=== PATIENT | male | born 1970 | race Caucasian/White ===

== ENCOUNTER → 2022-02-28 08:29 | Outpatient (BNVA) | payer OTHER, SELFPAY | PROVIDERS: PCP Internal Medicine; Visit Provider Internal Medicine Cardiovascular Disease | DX: I49.3 Ventricular premature depolarization (principal); I10 Essential (primary) hypertension | CPT/HCPCS: 93005 ==

== ENCOUNTER → 2022-03-14 14:04 | Outpatient (REF) | payer OTHER, SELFPAY ==
--- NOTE | 2022-03-14 14:08 | HM_ITS ---
* Total monitoring time 2 days and 23 hours. * Underlying rhythm is sinus. Average rate 83/Min. Range 59 to 119/Min. * No atrial fibrillation or flutter or AV blocks or pauses. * Rare supraventricular and ventricular ectopy with minimal burden. * Rapid/fast heartbeat in patient diary associated with sinus tachycardia. Some episodes of heart pounding correlate with sinus rhythm. MTDD
--- NOTE | 2022-03-14 14:08 | CA_ITS ---
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 The calculated ejection fraction is 55% by biplane method. - No obvious valvular pathology seen on this study. Findings Left Ventricle Normal left ventricular cavity size. The left ventricular systolic function is normal. The calculated ejection fraction is 55% by biplane method. There is no evidence of regional wall motion abnormalities. Diastolic function is normal for age. There is mild septal and mild basal asymmetric hypertrophy. Right Ventricle Normal right ventricular cavity size and systolic function. Atria Both atria are normal in size. Aortic Valve There is a normal trileaflet aortic valve. There is no aortic valve stenosis. There is no aortic valve regurgitation. Mitral Valve The mitral valve appears normal. There is no mitral valve regurgitation. There is no mitral valve stenosis. Pulmonic Valve The pulmonic valve is likely normal. Tricuspid Valve Normal tricuspid valve structure. There is trace tricuspid valve regurgitation. The pulmonary artery systolic pressure is normal. Great Vessels The asc aorta is normal in size. Venous The inferior vena cava was not well visualized. The inferior vena cava is normal in size. Pericardium/Pleural There is no evidence of pericardial effusion. Prior Study Comparison No prior study available for comparison. Recommendations, Care & Conclusions No obvious valvular pathology seen on this study. Measurements 2D Linear Measurements IVSd: 1.10 0.6-0.9/0.6-1.0 cm LVIDd: 4.52 3.9-5.3/4.2-5.9 cm LVIDd Index: 2.08 2.4-3.2/2.2-3.1 cm/m2 LVIDs: 3.34 2.0-3.6 cm LVPWd: 0.95 0.7-1.1 cm LA Diam: 3.60 2.7-3.8/3.0-4.0 cm LAIDs Index: 1.66 1.5-2.3 cm/m2 LV Mass: 198.90 67-162/88-224 g LV Mass Index: 91.66 43-95/49-115 g/m2 LVOT Diam: 2.30 3.0+(-)1.3 cm 2D Systolic Function EF 4C: 55.90 >55% EF 2C: 58.70 >55% EF BiP: 55.40 >55% Mitral Valve MV Pk E: 0.63 MV PK A: 0.73 MV Decel Time: 181.00 E/A: 0.90 E'Lateral: 14.00 E'Medial: 7.62 E/E' Med: 8.30 E/E' Lat: 4.50 PHT: 53.00 MVA PHT: 4.15 Decel Trigg: 3.51 Aortic Valve AoV Pk Deven: 1.25 AoV Mn Deven: 0.88 AoV VTI: 0.20 AoV Pk Grad: 6.00 Aov Mn Grad: 3.00 GEOVANY Cont.VTI: 2.88 LVOT LVOT Pk Deven: 0.88 LVOT Mn Deven: 0.55 LVOT VTI: 0.14 LVOT Pk Grad: 3.00 LVOT Mn Grad: 1.00 LVOT Diam: 2.30 LVOT Area: 4.15 Diastolic Function MV Pk E: 0.63 MV Pk A: 0.73 E/A: 0.90 E'Medial: 7.62 E/E' Med: 8.30 E' Laterial: 14.00 E/E' Lat: 4.50 Right Ventricle TAPSE (mm): 19.40 TVS' Deven: 10.30 Tricuspid Valve TR Pk Deven: 1.89 TR Pk Grad: 14.00 RA Press: 3.00 RVSP: 17.00 Great Vessels Aorta Sinus of Valsalva: 3.57 2.0-3.[address] Ridge: 2.64 1.7-3.4 cm Ao Asc: 3.00 2.1-3.4 cm Updated in Other Vendor System with Status of Final Odilon Ramirez MD electronically signed on 03/15/2022 12:44:56 PM with status of Final
== END ==
LOC: HO.CARD 14:04
PROVIDERS: Visit Provider Internal Medicine Cardiovascular Disease
DX: I49.3 Ventricular premature depolarization (principal)
CPT/HCPCS: 93242; 93306

== ENCOUNTER 2023-04-14 08:17 | Outpatient (AMB) | payer OTHER, SELFPAY ==
[2023-04-14 08:20] VITALS: BP 130/82; PULSE 80; BMI 33.5
--- NOTE | 2023-04-14 08:20 | MHC.OFFVIS ---
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 He has been doing well. Denies any symptoms of palpitations. Recently spironolactone was reduced as blood pressure was controlled to 25 mg daily. Plan by Nephrology because of recurrent urinary stone to switch is hydrochlorothiazide to chlorthalidone and probably stop spironolactone therapy. He was recently added with glipizide for his diabetes control. He does not exercise as much as he would like to. Denies any exertional chest pain or shortness of breath with routine activity. Denies any lightheadedness, syncope. No heart failure symptoms. [facility] Medical History Obesity Hyperlipidemia Diabetes PVCs (premature ventricular contractions) HTN (hypertension) Review of Systems Const Denies chills, Denies fatigue, Denies fever(s), Denies frequent falls, Denies weakness, Denies weight gain and Denies weight loss ENT Denies dizziness Card Denies chest pain, Denies leg edema, Denies lightheadedness, Denies palpitations, Denies dyspnea, Denies dyspnea on exertion, Denies orthopnea and Denies other (loss of consciousness) Resp Denies cough, Denies dyspnea and Denies dyspnea on exertion GI Denies hematochezia and Denies change in stool character Musc Denies abnormal gait, Denies muscle weakness, Denies numbness, Denies radiating pain into limb and Denies tingling Neuro Denies abnormal gait, Denies dizziness, Denies frequent falls, Denies numbness, Denies tingling and Denies weakness Endo Denies fatigue and Denies palpitations Physical Exam Vital Signs: Last Vital Signs Pulse 80 04/14/23 08:20 BP 130/82 04/14/23 08:20 BMI result Body Mass Index 33.5 Const General: cooperative, comfortable, no acute distress, alert, awake and well groomed Nutritional Appearance: well nourished and obese Orientation/consciousness: patient oriented x3 Limitations: no limitations Neck Neck: Yes trachea midline, Yes supple and Yes no JVD Resp Effort & Inspection: normal respiratory effort Auscultation: clear to auscultation bilaterally Cardio Jugular venous distension: no JVD Palpation: normal PMI Rate: regular rate Rhythm: regular rhythm Heart sounds: S1 normal heart sound present, S2 normal heart sound present, no click, no gallops, no murmurs and no rubs GI Inspection: Yes obesity Auscultation: normal bowel sounds Skin General skin exam: no rashes or lesions noted Neuro General: patient oriented x3 and no focal motor deficits Extrem General: Yes no clubbing, cyanosis or edema Office Procedures EKG Details: EKG shows normal sinus rhythm with left axis deviation with pseudo inferior infarct pattern most likely related to body habitus, unchanged from before [id number], Complete Assessment & Plan Assessment & Plan (1) HTN (hypertension): Code(s): I10 - Essential (primary) hypertension Plan: Longstanding hypertension requiring multiple medications. Has done very well with spironolactone therapy. Last potassium was 3.5 however if it is felt that is spironolactone needs to be held for alternative therapy I am okay with that. Will discuss with his Nephrology group. Continue lisinopril. Plan to switch him to chlorthalidone therapy. Advised to monitor blood pressure at home maintain a log. Goal blood pressure less than 130/84. Continue aggressive vascular risk factor modification starting with more aggressive lifestyle change with regular physical activity and weight loss program. Aggressive management diabetes goal hemoglobin A1c less than 7%. LDL is currently well optimized continue the same. (2) PVCs (premature ventricular contractions): Code(s): I49.3 - Ventricular premature depolarization Plan: Prior history of highly symptomatic PVCs which have remained suppressed. He has not had any significant symptoms. No change in therapy. No indication for beta-blockers. Avoidance of stimulants was discussed. Stress mitigation strategies were discussed. Will follow up in the clinic in 1 year's time, sooner p.r.n.. Thank you for allowing me to partake in his care Medications: Changed From spironolactone 50 mg PO DAILY 90 tabs 3RF To spironolactone 25 mg PO DAILY Coding Level of Care Code Est Pt Level 4 (81344) Diagnoses HTN (hypertension) I10 PVCs (premature ventricular contractions) I49.3 CPT Codes EKG - CPT: 61579-[id number], Complete ([id number])
== END 2023-04-14 08:46 | disposition home or self-care (01) ==
PROVIDERS: PCP Internal Medicine; Referring Provider Internal Medicine; Visit Provider Internal Medicine Cardiovascular Disease
DX: I10 Essential (primary) hypertension (principal); I49.3 Ventricular premature depolarization
CPT/HCPCS: 93010; 99214

== ENCOUNTER → 2023-04-14 08:17 | Outpatient (BNVA) | payer OTHER, SELFPAY | PROVIDERS: PCP Internal Medicine; Referring Provider Internal Medicine; Visit Provider Internal Medicine Cardiovascular Disease | DX: I49.3 Ventricular premature depolarization (principal); I10 Essential (primary) hypertension | CPT/HCPCS: 93005 ==

== ENCOUNTER 2024-04-14 08:19 | Outpatient (AMB) | payer OTHER, SELFPAY ==
[2024-04-14 08:25] VITALS: BP 140/88; PULSE 91; BMI 34.2
--- NOTE | 2024-04-14 08:25 | MHC.OFFVIS ---
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 He has been doing well. He said he has recently has lot of stress personally due to his parent's health and his blood pressures been elevated. His medications or change, lisinopril was increased about a month ago. Despite that the blood pressure remains elevated. His hydrochlorothiazide was switch to chlorthalidone for renal stones. He said that he has been doing well. He is currently not on spironolactone therapy. Currently taking metformin therapy. Overall doing well with no exertional symptoms although he does not go for exercise on a regular basis. Denies any chest pain, shortness of breath. No symptoms of palpitations. Denies any lightheadedness, syncope. No orthopnea, PND, leg edema. [facility] Medical History Obesity Hyperlipidemia Diabetes PVCs (premature ventricular contractions) HTN (hypertension) Review of Systems Const Denies chills, Denies fatigue, Denies fever(s), Denies frequent falls, Denies weakness, Denies weight gain and Denies weight loss ENT Denies dizziness Card Denies chest pain, Denies leg edema, Denies lightheadedness, Denies palpitations, Denies dyspnea, Denies dyspnea on exertion, Denies orthopnea and Denies other (loss of consciousness) Resp Denies cough, Denies dyspnea and Denies dyspnea on exertion GI Denies hematochezia and Denies change in stool character Musc Denies abnormal gait, Denies muscle weakness, Denies numbness, Denies radiating pain into limb and Denies tingling Neuro Denies abnormal gait, Denies dizziness, Denies frequent falls, Denies numbness, Denies tingling and Denies weakness Endo Denies fatigue and Denies palpitations Physical Exam Vital Signs: Last Vital Signs Pulse 91 04/14/24 08:25 BP 140/88 H 04/14/24 08:25 BMI result Body Mass Index 34.2 Const General: cooperative, comfortable, no acute distress, alert, awake and well groomed Nutritional Appearance: well nourished and obese Orientation/consciousness: patient oriented x3 Limitations: no limitations Neck Neck: Yes trachea midline, Yes supple and Yes no JVD Resp Effort & Inspection: normal respiratory effort Auscultation: clear to auscultation bilaterally Cardio Jugular venous distension: no JVD Palpation: normal PMI Rate: regular rate Rhythm: regular rhythm Heart sounds: S1 normal heart sound present, S2 normal heart sound present, no click, no gallops, no murmurs and no rubs GI Inspection: Yes obesity Auscultation: normal bowel sounds Skin General skin exam: no rashes or lesions noted Neuro General: patient oriented x3 and no focal motor deficits Extrem General: Yes no clubbing, cyanosis or edema Office Procedures EKG Details: EKG shows normal sinus rhythm with left axis deviation with inferior Q-waves [id number], Complete Assessment & Plan Assessment & Plan (1) HTN (hypertension): Code(s): I10 - Essential (primary) hypertension Category: Medical Plan: Patient hypertension which is uncontrolled probably related to recent personal situation increased stress. Although blood pressure remains elevated. Advised him to watch salt intake in his diet. Advised to increase fluid intake. I have taken the liberty to increase his lisinopril to 40 mg daily and chlorthalidone to 25 mg daily. Advised to monitor blood pressure at home maintain a log and provided to me in a month's time. Goal blood pressure less than 130/84. This was discussed with him. Importance of this was discussed. Once his stressful situation has improved her blood pressure is better controlled we can scale back on his medication this was discussed with him. Given his multiple risk factors would suggest a coronary calcium score to assess for coronary atherosclerosis and further treatment guidance. Continue aggressive sugar control with goal hemoglobin A1c less than 6%. (2) PVCs (premature ventricular contractions): Code(s): I49.3 - Ventricular premature depolarization Category: Medical Plan: Frequent PVCs in the past although currently not having any significant symptoms. EKG does not show any significant abnormalities at this point time. Will continue monitor clinically. Advised to call me with any new symptoms. Avoidance of stimulants and stress mitigation strategies were discussed. No pharmacotherapy is recommended. Will follow up in the clinic in 1 year's time, sooner p.r.n.. Thank you for allowing me to partake in his care Orders: Orders CT Coronary Calcium Score 4 Weeks I10 - Essential (primary) hypertension Medications: New chlorthalidone 25 mg PO DAILY 90 tabs 3RF lisinopril 40 mg PO DAILY 90 tabs 3RF Coding Level of Care Code Est Pt Level 4 (36069) Diagnoses HTN (hypertension) I10 PVCs (premature ventricular contractions) I49.3 CPT Codes EKG - CPT: 17821-[id number], Complete ([id number])
== END 2024-04-14 08:51 | disposition home or self-care (01) ==
PROVIDERS: PCP Internal Medicine; Visit Provider Internal Medicine Cardiovascular Disease
DX: I10 Essential (primary) hypertension (principal); I49.3 Ventricular premature depolarization
CPT/HCPCS: 93010; 99214

== ENCOUNTER → 2024-04-14 08:19 | Outpatient (BNVA) | payer OTHER, SELFPAY | PROVIDERS: PCP Internal Medicine; Visit Provider Internal Medicine Cardiovascular Disease | DX: I10 Essential (primary) hypertension (principal); I49.3 Ventricular premature depolarization; Z79.899 Other long term (current) drug therapy | CPT/HCPCS: 93005 ==

== ENCOUNTER 2025-04-18 08:12 | Outpatient (AMB) | payer OTHER, SELFPAY ==
[2025-04-18 08:19] VITALS: BP 130/70; PULSE 79; BMI 33.7
--- NOTE | 2025-04-18 08:19 | MHC.OFFVIS ---
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 He has been doing well from cardiac perspective. Very rarely he does have skipped heartbeats with PVCs. No exertional symptoms of chest pain or shortness of breath. Blood pressure is generally well controlled. He is currently on low-dose aspirin therapy. Denies any orthopnea, PND, leg edema. No lightheadedness, syncope. He said he tries to walk on a daily basis. [facility] Medical History Obesity Hyperlipidemia Diabetes PVCs (premature ventricular contractions) HTN (hypertension) Review of Systems Const Denies daytime sleepiness, Denies difficulty sleeping, Denies snoring, Denies stops breathing during sleep and Denies weakness Card Denies chest pain, Denies rapid heart rate, Denies irregular heart rhythm, Denies claudication, Denies leg edema, Denies lightheadedness, Denies palpitations, Denies dyspnea, Denies dyspnea on exertion, Denies orthopnea, Denies paroxysmal nocturnal dyspnea and Denies slow heart rate Resp Denies cough, Denies dyspnea, Denies dyspnea on exertion and Denies snoring GI Reports no additional complaints, Denies hematochezia, Denies change in stool character and Denies dyspepsia Musc Denies abnormal gait, Denies muscle weakness and Denies numbness Neuro Denies abnormal gait, Denies numbness and Denies weakness Endo Denies palpitations Physical Exam Vital Signs: Last Vital Signs Pulse 79 04/18/25 08:19 BP 130/70 04/18/25 08:19 BMI result Body Mass Index 33.7 Const General: cooperative, comfortable, no acute distress, alert, awake and well groomed Nutritional Appearance: well nourished and obese Orientation/consciousness: patient oriented x3 Limitations: no limitations Neck Neck: Yes trachea midline, Yes supple and Yes no JVD Resp Effort & Inspection: normal respiratory effort Auscultation: clear to auscultation bilaterally Cardio Jugular venous distension: no JVD Palpation: normal PMI Rate: regular rate Rhythm: regular rhythm Heart sounds: S1 normal heart sound present, S2 normal heart sound present, no click, no gallops, no murmurs and no rubs GI Inspection: Yes obesity Auscultation: normal bowel sounds Skin General skin exam: no rashes or lesions noted Neuro General: patient oriented x3 and no focal motor deficits Extrem General: Yes no clubbing, cyanosis or edema Office Procedures EKG Details: EKG shows normal sinus rhythm with left axis deviation with Q-waves in lead 3 and AVF, most likely pseudo infarct pattern related to abdominal obesity [id number], Complete Assessment & Plan Assessment & Plan (1) CAD (coronary artery disease): Code(s): I25.10 - Atherosclerotic heart disease of campo coronary artery without angina pectoris Category: Medical Plan: Coronary artery disease based on coronary calcium score with total score of 111. Agree with low-dose aspirin therapy. Continue aggressive risk factor modification. Currently on statin therapy. Target goal LDL less than 60 mg/dL. Will obtain lipid panel through your office. Continue aggressive blood pressure control, see below. Diabetes management as per your office. Goal hemoglobin A1c less than 7%. (2) PVCs (premature ventricular contractions): Code(s): I49.3 - Ventricular premature depolarization Category: Medical Plan: PVCs more or less a controlled on current therapy despite increased stress at work. Advised to continue monitor. Avoidance of stimulants was discussed. Stress mitigation strategies were discussed. (3) HTN (hypertension): Code(s): I10 - Essential (primary) hypertension Category: Medical Plan: Hypertension which is currently well optimized advised to monitor blood pressure at home maintain a log. Goal blood pressure less than 130/84. Low-salt diet was discussed. Understands agrees. Continue participate in weight loss program. Continue to participate in regular aerobic training. Will follow up in the clinic in 1 year's time, sooner p.r.n.. Thank you for allowing me to partake in his care Coding Level of Care Code Est Pt Level 4 (21249) Complex EM visit Add On G2211 Diagnoses CAD (coronary artery disease) I25.10 PVCs (premature ventricular contractions) I49.3 HTN (hypertension) I10 CPT Codes EKG - CPT: 76678-[id number], Complete ([id number])
--- OUTSIDE RECORDS SUMMARY | 2025-04-18 09:27 | XMS_ITS | Clinical Summary ---
Author Organization [facility] Facility Address [address] [address] Care Team Providers Care Environmental Health Inspector Name Role Phone Kiko Ricks MD Primary Care Provider Allergies Active Allergy Reactions Criticality Noted Date Comments Codeine Other (see comments) 12/18/2020 Medications omega-3 (FISH OIL) 1000 MG capsule Take 2 capsules by mouth 1 (one) time each day Active Multiple Vitamins-Minera ls (MULTIVITAMIN ADULTS 50+ PO) Take 1 tablet by mouth 1 (one) time each day Active Glucosamine HCl-MSM (Glucosamine-MS M) 375-250 MG tablet Take 1 tablet by mouth 1 (one) time each day Active lisinopril (PRINIVIL,ZESTR IL) 10 MG tablet Take 20 mg by mouth 1 (one) time each day Active atorvastatin (LIPITOR) 20 MG tablet Take 20 mg by mouth 1 (one) time each day 05/15/2022 Active metFORMIN XR (GLUCOPHAGE-XR) 500 MG 24 hr tablet Take 1,000 mg by mouth in the morning and 1,000 mg in the evening. 05/09/2022 Active chlorthalidone 25 MG tablet Take 12.5 mg by mouth 1 (one) time each day 04/24/2023 Active Potassium Citrate ER 15 MEQ (1620 MG) tablet controlled-rele ase Take 1 tablet by mouth in the morning and 1 tablet in the evening. 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 Encounters Date Type Department Care Team Description 02/01/2025 8:00 AM EDT Office Visit [facility] [address] [id number] Jacques Mason MD Medullary nephrocalcinosis (Primary Dx); Hypertension; Hypercalciuria; Acquired renal cystic disease; Overweight; Renal stone from Last 3 Months Family History Medical History Relation Comments Hypertension Father Heart disease Mother [place] Hypertension Mother Relation Status Comments Father Alive Mother Alive Social History Tobacco Use Types Packs/Day Years Used Date Smoking Tobacco: Never Smokeless Tobacco: Never Alcohol Use Standard Drinks/Week Comments Yes 0 (1 standard drink = 0.6 oz pure alcohol) Alcoholic Drinks/day: Occasional social drink Sex and Gender Information Value Date Recorded Sex Assigned at Not on file Legal Sex Male 4:49 PM EST Gender Identity Not on file Sexual Orientation Not on file Last Filed Vital Signs Vital Sign Reading Time Taken Comments Blood Pressure 140/80 02/01/2025 8:03 AM EDT Pulse 80 02/01/2025 8:03 AM EDT Temperature - - Respiratory Rate - - Oxygen Saturation 97% 02/01/2025 8:03 AM EDT Inhaled Oxygen Concentration - - Weight 102 kg (224 lb) 02/01/2025 8:03 AM EDT Height 177.8 cm (5' 10 ) 02/03/2024 8:22 AM EDT Body Mass Index 32.14 02/03/2024 8:22 AM EDT Plan of Treatment Upcoming Encounters Date Type Department Care Team (Late st Contact Info) Description 02/01/2026 8:00 AM EDT Office Visit [facility] [address] [id number] Jacques Mason MD [address] [id number] Health Maintenance Due Date Last Done Comments Hepatitis B Vaccine (1 of 3 - 19+ 3-dose series) 02/09/1987 Pneumococcal Vaccine: 50+ Ye ars (1 of 2 - PCV) 02/09/1987 Colorectal Cancer Screening: Annual FOBT 02/09/2017 Colorectal Cancer Screening: Colonoscopy 02/09/2017 Colorectal Cancer Screening: Sigmoidoscopy 02/09/2017 Diabetes: Ophthalmology Exam 12/23/2024 Diabetes: Pedal Pulse Checked 12/23/2024 Diabetes: Sensory Foot Exam 12/23/2024 Diabetes: Visual Foot Exam 12/23/2024 Influenza Vaccine (#1) 2025 , 04/17/2021, 05/22/2020, Additional history exists Diabetes: Hemoglobin A1C 04/08/2025 01/06/2025, 07/03 Insurance [employer] Care Teams Environmental Health Inspector Relationship Specialty Start Date End Date Kiko Ricks MD [address] [place] [id number] PCP - [facility] 06/19/22
--- OUTSIDE RECORDS SUMMARY | 2025-04-18 09:27 | XMS_ITS | Clinical Summary ---
Author Organization [facility] Address [address] [address] Phone Care Team Providers Care Fur Matcher Name Role Phone Shanna Patton MD Primary Care Provid er Social History Tobacco Use Types Packs/Day Years Used Date Smoking Tobacco: Never Assessed Education Answer Date Recorded Are you interested in more education? Not on aubrey e 11/28/2022 Are you concerned about learning? Not on file 11/28/2022 No 11/28/2022 No 11/28/2022 Digital Access Answer Date Recorded No 12/27/2022 No 12/27/2022 No 12/27/2022 Reliable internet access at home? Not on file 12/27/2022 Device with a working camera? Not on file Sex and Gender Information Value Date Recorded Sex Assigned at Not on file Legal Sex Male 2:35 PM EDT Gender Identity Not on file Sexual Orientation Not on file Plan of Treatment Health Maintenance Due Date Last Done Comments LIPID PANEL 1968 DEPRESSION SCREENING 1980 SMOKING Hx and SMOKELESS TOBACCO SCREENING 02/09/1981 HEPATITIS C SCREENING 02/09/1986 HIV ONE-TIME SCREENING (18-65 YEARS) 02/09/1986 COLOGUARD 02/09/2013 COLONOSCOPY 02/09/2013 COLORECTAL CANCER SCREENING 02/09/2013 FIT TEST 02/09/2013 FOBT 02/09/2013 SIGMOIDOSCOPY 02/09/2013 VIRTUAL COLONOSCOPY 02/09/2013 PNEUMOCOCCAL VACCINES (50+ years) (1 of 1 - PCV) 02/09/2018 ZOSTER VACCINES (1 of 2) 02/09/2018 INFLUENZA VACCINE (#1) 2025 0, 05/19/2019, 04/28/2018, Additional history exists COVID-19 VACCINE ( season) 2025 09/13/2020, 08/16/2020 Adult Td,Tdap Booster 09/08/2029 09/08/2019, 009 HEPATITIS A VACCINES Aged Out No long er eligible based on patient's age to complete this topic HIB VACCINES Aged Out No longer eligi ble based on patient's age to complete this topic MENINGOCOCCAL VACCINES (ACWY) Aged Out No longer eligible based on patient's age to complete this topic MENINGOCOCCAL VACCINES (B) Aged Out N o longer eligible based on patient's age to complete this topic Medical Devices Not on file Insurance [employer] [facility] CHOICE [address] [place], [place] [address] [facility] [place] [address] [place] [address] [place] [address] [facility] [address] [address] [facility] [address] [facility] CHOICE [facility] Care Teams Fur Matcher Relationship Specialty Start Date End Date [facility] [address] [address] PCP - General Internal Medicine 11/23/19 Additional Source Comments The information contained in this document represents components of the legal health record. It is not the complete legal health record.[facility]
--- OUTSIDE RECORDS SUMMARY | 2025-04-18 09:27 | XMS_ITS | Clinical Summary ---
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 04/25/20 24 Active glucosamine-c hondroit-vit C-Mn 500-400 mg capsule Take by mouth. Acti ve Autolet lancing device [employer] (One Touch Delica Lancing Dev) [facility] [place] [place] Use as directed to test blood sugar 11/20/19 22 Active lisinopril (PRINIVIL,ZES TRIL) 40 mg tablet Take 1 Tablet by mouth daily. 04/25/20 24 Active MULTIVITAMIN ORAL Take by mouth daily. Active magnesium oxide 400 mg magnesium capsule TAKE 1 CAPSULE BY MOUTH EVERY DAY 10/21/19 24 Active omega-3 (FISH OIL) 360-1,200 mg capsule Take by mouth daily. Active ONETOUCH DELICA LANCETS MISC ONETOUCH DELICA LANCETS FINE MISC Use to test blood sugar once daily 11/20/19 22 Active OneTouch Ultra Test test strip Use as instructedUSE TO CHECK BLOOD SUGAR ONCE DAILY 100 strip 1 07/14/20 24 Active aspirin 81 mg EC tablet Take 1 tablet (81 mg total) by mouth 1 (one) time each day. Active glipiZIDE (Glucotrol XL) 5 mg 24 hr tablet Take 1 tablet (5 mg total) by mouth 1 (one) time each day. Do not crush, chew, or split. 90 each 1 01/07/20 25 Active potassium citrate (UROCIT-K) 15 mEq SR tablet TAKE 1 TABLET (15 MEQ TOTAL) BY MOUTH EVERY 8 (EIGHT) HOURS. 270 tablet 1 01/31/20 25 Active atorvastatin (LIPITOR) 20 mg tablet TAKE 1 TABLET BY MOUTH EVERY DAY 90 tablet 1 01/31/20 25 Active metFORMIN XR (GLUCOPHAGE-X R) 500 mg 24 hr tablet TAKE 2 TABLETS (1,000 MG TOTAL) BY MOUTH 2 (TWO) TIMES A DAY. DO NOT CRUSH, CHEW, OR SPLIT. 360 tablet 1 03/28/20 25 Active metFORMIN XR (GLUCOPHAGE-X R) 500 mg 24 hr tablet Take 2 tablets (1,000 mg total) by mouth 2 (two) times a day. Do not crush, chew, or split. 360 tablet 1 10/06/19 25 025 Discontinued Active Problems Problem Noted Date Diagnosed Date Hypomagnesemia 01/05/2025 Calculus of right ureter 08/28/2023 Hypokalemia 08/28/2023 Type 2 diabetes mellitus wit h microalbuminuria, without long-term current use of insulin ([facility] V24, [facility] V28) 09/05/2022 Uncontrolled type 2 diabetes mellitus with hyperglycemia ([facility] V24, [facility] V28) 11/19/2021 Mixed hyperlipidemia 05/10/2021 Effusion of left foot joint 02/09/2020 Pain of left heel 02/09/2020 Retinal freckle 09/28/2014 White coat syndrome with hypertension 03/02/2013 Obesity (BMI 30.0-34.9) 01/27/2013 Primary hypertension 06/03/2011 Kidney stone 06/03/2011 Overview (06/17/2024): 80 % calcium oxalate dihydrate 10 % calcium oxalate monohydrate 10 % calcium phosphate Immunizations Name Administration Dates Next Due Influenza Quadravalent, MDCK , 0.5ml, preservative free (Flucelvax) 6mo and older 04/24/2023,05/19/2019 Influenza trivalent, 0.5mL, preservative free (Fluarix; FluLaval; Fluzone) ages 6mo and older (Afluria) 3 years and older 04/17/2021,05/22/2020,04/09/2016,2013,05/31/2013,06/23/2012,06/03/2011 Moderna SARS-CoV-2 COVID-19, mRNA, LNP-S, preservative free 11/13/2021,09/13/2020,08/16/2020 Td Tetanus diptheria (Tdvax) 7yo and older 09/08/2019 Tdap Tetanus diptheria acell ular pertussis (Boostrix; Adacel) 7yo and older 04/06/2009 Surgical History Surgery Date Site/Laterality Comments ANKLE SURGERY PROCEDURE: HISTORICAL ANKLE SURGERY; COMMENT: x 3 COLONOSCOPY PROCEDURE: HISTORICAL COLONOSCOPY LITHOTRIPSY PROCEDURE: HISTORICAL LITHOTRIPSY Medical History Medical History Date Comments HTN (hypertension) DX:HTN (hyper tension) Kidney stone 2010 DX:Kidney stone; COMMENT: passed spontaneously Summer 2010 Obesity (BMI 30.0-34.9) 01/27/2013 DX:Obesi ty (BMI 30.0-34.9) Retinal freckle 09/28/2014 DX:Retinal freck le DM2 (diabetes mellitus, type 2) ([facility] V24, [facility] V28) DX:DM2 (diabetes mellitus, type 2) ([facility]) Family History Medical History Relation Name Comments Diabetes Brother Other: salivary gland ca Father Coronary artery disease Mother Relation Name Status Comments Brother Alive diabetes Daughter Alive healthy Father Alive htn Mother Alive heart disease h eart attack Sister Alive dementia Son 1 Alive healthy Son 2 Alive healthy Social History Tobacco Use Types Packs/Day Years Used Date Smoking Tobacco: Never Smokeless Tobacco: Never Tobacco Cessation:Counseling Given: Not Answered Alcohol Use Standard Drinks/Week Comments Yes 0 (1 standard drink = 0.6 oz pur e alcohol) Housing Instability Answer Date Recorde d Are you worried that in the next 2 months you may not have stable housing? No 07/22/2024 Food Access & Nutrition Answer Date Rec orded Do you have access to a vari ety of food including fruits and vegetables? Yes 07/22/2024 Access to Healthcare Answer Date Record ed Within the last 3 months, ho w many times did you visit the emergency department for your medical care? 0 07/22/2024 Health Literacy Answer Date Recorded How often do you need to hav e someone help you when you read instructions, pamphlets, or other written material from your doctor or pharmacy? Never 07/22/2024 Caregiver: How often do you need to have someone help you when you read instructions, pamphlets, or other written material from your doctor or pharmacy? Not on file 07/22/2024 Financial Risk Answer Date Recorded How hard is it for you to pa y for the very basics like food, housing, medical care, and air conditioning / heating? Not very hard 07/22/2024 Transportation Answer Date Recorded Has the lack of transportati on kept you from meetings, work, or from getting things needed for daily living? No Has the lack of transportati on kept you from medical appointments or from getting medications? No 07/22/2024 Social Isolation Answer Date Recorded How often do you feel lonely or isolated from th ose around you? Never 07/22/2024 Food Risk Answer Date Recorded Within the past 12 months we worried whether our food would run out before we got money to buy more. Never true 07/22/2024 Within the past 12 months th e food we bought just didn't last and we didn't have money to get more. Never true 07/22/2024 Dependent Care Answer Date Recorded Do you need help finding or paying for care for your loved ones. For example, children's attendant or elderly care for an older adult? No 07/22/2024 Education Answer Date Recorded Do you think completing more education or training, like finishing a GED, going to college, or learning a trade, would be helpful for you? N/A 07/22/2024 Employment and Income Answer Date Recor ded During the last four weeks, have you been actively looking for work? No 07/22/2024 Living Situation Answer Date Recorded What is your living situation? 1 09/22/2023 Sex and Gender Information Value Date Recorded Sex Assigned at Not on file Legal Sex Male 9:57 AM EST Gender Identity Not on file Sexual Orientation Not on file Obstetrics History Last Filed Vital Signs Vital Sign Reading Time Taken Comments Blood Pressure 128/80 01/06/2025 1:18 PM EDT Pulse 74 01/06/2025 1:18 PM EDT Temperature 36.2 C (97.1 F) 01/06/2025 1:18 PM EDT Respiratory Rate 20 01/06/2025 1:18 PM EDT Oxygen Saturation - - Inhaled Oxygen Concentration - - Weight 105 kg (232 lb) 01/06/2025 1:18 PM EDT Height 177.8 cm (5' 10 ) 01/06/2025 1:18 PM EDT Body Mass Index 33.29 01/06/2025 1:18 PM EDT Plan of Treatment Upcoming Encounters Date Type Department Care Team (Late st Contact Info) Description 07/10/2025 4:00 PM EST Office Visit Adult Medicine [address] [phone] Kiko Ricks MD [address] [place] [address] Health Maintenance Due Date Last Done Comments Diabetes: Annual Retina Eye Exam 02/09/1978 Hepatitis B Vaccines (1 of 3 - 19+ 3-dose series) 02/09/1987 Pneumococcal Vaccine: 50+ Years (1 of 2 - PCV) 02/09/1987 Zoster Vaccines (1 of 2) 02/09/2018 HIV Screening 07/12/2022 Diabetes: Annual Foot Exam 08/28/2024 08/28/2023 COVID-19 Vaccine ( season) 2025 05/07/2022, 11/13/2021, 06/19/2021, Additional history exists Influenza Vaccine (#1) 2025 3, 04/18/2021, 04/17/2021, Additional history exists Diabetes: Blood Sugar Control Test (HGBA1C) 07/08/2025 01/06/2025, 07/14/2024, 02/11/2024, Additional history exists Diabetes: Annual Urine Albumin-Creatinine Ratio (uACR) 07/14/2025 07/14/2024, 02/11/2024 Social Influencers of Health Screening 07/22/2025 07/22/2024 Diabetes: Annual GFR (Glomerular Filtration Rate) 01/06/2026 01/06/2025, 08/01/2024, 07/14/2024, Additional history exists Hypertension/CHF/CAD Annual BMP Blood Test 01/06/2026 01/06/2025, 08/01/2024, 07/14/2024, Additional history exists DTaP,Tdap,and Td Vaccines (3 - Td or Tdap) 09/08/2029 09/08/2019, 04/06/2009 Cholesterol Screening (Lipid Panel) 01/06/2030 01/06/2025, 08/21/2023 Colorectal Cancer Screening: Colonoscopy 05/01/2032 05/01/2022 Hepatitis C Screening Completed 06/09/2022 Depression Screening Completed 10/27/2024 HIB Vaccines Aged Out No longer eligi ble based on patient's age to complete this topic HPV Vaccines Aged Out No longer eligi ble based on patient's age to complete this topic Hepatitis A Vaccines Aged Out No long er eligible based on patient's age to complete this topic IPV Vaccines Aged Out No longer eligi ble based on patient's age to complete this topic MMR Vaccines Aged Out No longer eligi ble based on patient's age to complete this topic Meningococcal ACWY Vaccine Aged Out N o longer eligible based on patient's age to complete this topic Meningococcal B Vaccine Aged Out No l onger eligible based on patient's age to complete this topic RSV Immunization Patients Under 20 months Aged Out No longer eligible based on patient's age to complete this topic Varicella Vaccines Aged Out No longer eligible based on patient's age to complete this topic Procedures Procedure Name Priority Date/Time Associated Diagnosis Comments BASIC METABOLIC PANEL Routine 01/06/2025 8:16 AM EDT Type 2 diabetes mellitus with microalbuminuria, without long-term current use of insulin ([facility] V24, [facility]/HCC V28) White coat syndrome with hypertension Mixed hyperlipidemia HEMOGLOBIN A1C Routine 01/06/2025 8:16 AM EDT Type 2 diabetes mellitus with microalbuminuria, without long-term current use of insulin ([facility] V24, [facility] V28) White coat syndrome with hypertension Mixed hyperlipidemia LIPID PANEL WITH REFLEX TO DIRECT LDL Routine 01/06/2025 8:16 AM EDT Type 2 diabetes mellitus with microalbuminuria, without long-term current use of insulin ([facility]/HCC V24, [facility]/HCC V28) White coat syndrome with hypertension Mixed hyperlipidemia MICROALBUMIN CREATININE URINE RATIO Routine 07/14/2024 3:46 PM EST Hypokalemia Hypertension, essential Type 2 diabetes mellitus with microalbuminuria, without long-term current use of insulin ([facility] V24, [facility] V28) DIABETES FOOT EXAM Routine 08/28/2023 HEPATITIS C SCREENING Routine 06/09/2022 COLONOSCOPY Routine 05/01/2022 from Last 3 Months or Most Recently Relevant to Health Maintenance Results * (ABNORMAL) Lipid panel with reflex to direct LDL (01/06/2025 8:16 AM EDT) Cholesterol 109 0 - 200 mg/dL LAB CHEMISTRY METHOD 01/06/2025 1:41 PM EDT [facility] Triglycerides 149 0 - 150 mg/dL LAB [facility] HDL 34(L) >=40 mg/dL LAB CHEMISTRY METHOD 01/06/2025 1:41 PM [facility] LDL Calculated 45 0 - 100 mg/dL LAB CHEMISTRY METHOD 01/06/2025 1:41 PM EDT [facility] VLDL Cholesterol Ray 29.8 mg/dL LAB CHEMISTRY METHOD [facility] Non HDL Chol. (LDL+VLDL) 75 <145 mg/dL LAB CHEMISTRY METHOD 01/06/2025 1:41 PM EDT [facility] Chol/HDL Ratio 3.2 0.0 - 4.4 LAB CHEMISTRY METHOD 01/06/2025 1:41 PM EDT [facility] Blood Venous blood specimen / Unknown Venipuncture / Unknown 01/06/2025 8:16 AM EDT 01/06/2025 8:16 AM EDT Kiko Ricks MD LAB BLOOD ORDERABLES Final Result Performing Organization Address [facility]/ZIP Co de Phone Number [facility] [address] [place] [address], [place] [phone] * (ABNORMAL) Hemoglobin A1c (01/06/2025 8:16 AM EDT) Hemoglobin A1C 7.9(H) <6.5 % LAB CHEMISTRY METHOD 01/06/2025 1:49 PM EDT [facility] Mean Bld Glu Estim. 180 mg/dL LAB CHEMISTRY METHOD 01/06/2025 1:49 PM EDT [facility] Blood Venous blood specimen / Unknown Venipuncture / Unknown 01/06/2025 8:16 AM EDT 01/06/2025 8:16 AM EDT Kiko Ricks MD LAB BLOOD ORDERABLES Final Result Performing Organization Address City/[facility]/ZIP Co de Phone Number [facility] [address] [place] [address], [place] [phone] * (ABNORMAL) Basic metabolic panel (01/06/2025 8:16 AM EDT) Sodium 139 133 - 145 mmol/L LAB CHEMISTRY METHOD 01/06/2025 1:41 PM EDT [facility] Potassium 4.0 3.5 - 5.5 mmol/L LAB CHEMISTRY METHOD 01/06/2025 1:41 PM EDT [facility] Chloride 101 96 - 110 mmol/L LAB CHEMISTRY METHOD 01/06/2025 1:41 PM [facility] CO2 27 21 - 32 mmol/L LAB CHEMISTRY METHOD 01/06/2025 1:41 PM [facility] Anion Gap 11 3 - 11 LAB CHEMISTRY METHOD 01/06/2025 1:41 PM [facility] Glucose 187(H) 70 - 100 mg/dL LAB CHEMISTRY METHOD 01/06/2025 1:41 PM [facility] BUN 21 5 - 25 mg/dL LAB CHEMISTRY METHOD 01/06/2025 1:41 PM [facility] Creatinine 0.74 0.70 - 1.30 mg/dL LAB CHEMISTRY METHOD 01/06/2025 1:41 PM [facility] eGFR 106 >=60 mL/min/1. 73m2 LAB CHEMISTRY METHOD 01/06/2025 1:41 PM [facility] Comment:Calculation based on the Chronic Kidney Disease Epidemiology Collaboration (CKD-EPI) equation refit without adjustment for race. BUN/Creatinine Ratio 28.4 LAB CHEMISTRY METHOD 01/06/2025 1:41 PM [facility] Calcium 9.1 8.5 - 10.5 mg/dL LAB CHEMISTRY METHOD 01/06/2025 1:41 PM [facility] Blood Venous blood specimen / Unknown Venipuncture / Unknown 01/06/2025 8:16 AM EDT 01/06/2025 8:16 AM EDT us Kiko Ricks MD LAB BLOOD ORDERABLES Final Result [facility] [address] [place] [address], * (ABNORMAL) Microalbumin creatinine urine ratio (07/14/2024 3:46 PM EST) Creatinine, Urine 62.0 mg/dL LAB CHEMISTRY METHOD 07/14/2024 7:11 PM EST [facility] Microalb, Ur 22.0 0.0 - 29.0 mg/L LAB CHEMISTRY METHOD 07/14/2024 7:11 PM EST [facility] Microalb/Creat Ratio 35(H) <30 mg/g creat LAB CHEMISTRY METHOD 07/14/2024 7:11 PM EST [facility] Urine Urine specimen obtained by clean catch procedure / Unknown Non-blood Collection / Unknown 07/14/2024 3:46 PM EST 07/14/2024 3:46 PM EST Kiko Ricks MD LAB URINE ORDERABLES Final Result [facility] [address] [place] [address], * Diabetes Foot Exam (08/28/2023) [facility] Diabetes: Annual Foot Exam Abstracted Historical Julito JULES HEALTH MAINTENANCE Final Result * Hepatitis C Screening (06/09/2022) [facility] Hepatitis C Screening Abstracted Michael Vila MD HEALTH MAINTENANCE Final Result * Colonoscopy (05/01/2022) [facility] Colonoscopy Abstracted, no interpretation Anatomical Region Laterality Modality Other Historical Julito JULES HEALTH MAINTENANCE Final Result from Last 3 Months or Most Recently Relevant to Health Maintenance [facility] Care Teams Auto Parts Handler Relationship Specialty Start Date End Date Kiko Ricks MD [address] [place] [address] PCP - General Internal Medicine 11/25/21
== END 2025-04-18 09:15 | disposition home or self-care (01) ==
LOC: HO.HCS 08:12
PROVIDERS: PCP Internal Medicine; Visit Provider Internal Medicine Cardiovascular Disease
DX: I25.10 Atherosclerotic heart disease of native coronary artery without angina pectoris (principal); I49.3 Ventricular premature depolarization; I10 Essential (primary) hypertension
CPT/HCPCS: 93010; 99214

== ENCOUNTER → 2025-04-18 08:12 | Outpatient (BNVA) | payer OTHER, SELFPAY | PROVIDERS: PCP Internal Medicine; Visit Provider Internal Medicine Cardiovascular Disease | DX: I25.10 Atherosclerotic heart disease of native coronary artery without angina pectoris (principal) | CPT/HCPCS: 93005 ==